=== PATIENT | female | born 1965 | race Caucasian/White ===

== ENCOUNTER 2018-07-09 20:30 | Outpatient (CLI) | payer BC | END 2018-07-09 20:31 | disposition home or self-care (01) | LOC: SLEEPLAB 20:30 | PROVIDERS: ATTEND Internal Medicine | DX: G25.81 Restless legs syndrome (principal); G47.33 Obstructive sleep apnea (adult) (pediatric); R53.83 Other fatigue; R06.83 Snoring; G47.10 Hypersomnia, unspecified; I10 Essential (primary) hypertension; G47.00 Insomnia, unspecified; E11.9 Type 2 diabetes mellitus without complications; E66.9 Obesity, unspecified; Z68.42 Body mass index [BMI] 45.0-49.9, adult | CPT/HCPCS: 95810 ==

== ENCOUNTER 2019-05-14 12:41 | Emergency (ER) | payer BC, OTHER ==
--- NOTE | 2019-05-14 13:28 | RAD ---
EXAM: 3 views of the left hand COMPARISON: None HISTORY: Hand pain after fall FINDINGS: 3 views of the left hand shows no evidence of acute fracture or dislocation. No degenerativ e changes are seen. No soft tissue swelling is present. IMPRESSION: Unremarkable exam.
== END 2019-05-14 13:52 | disposition home or self-care (01) ==
LOC: SCSER 12:41
DX: S60.222A Contusion of left hand, initial encounter (principal); E78.5 Hyperlipidemia, unspecified; E11.9 Type 2 diabetes mellitus without complications; I10 Essential (primary) hypertension; G40.909 Epilepsy, unspecified, not intractable, without status epilepticus; F32.9 Major depressive disorder, single episode, unspecified; F41.9 Anxiety disorder, unspecified; Z79.899 Other long term (current) drug therapy; Z79.84 Long term (current) use of oral hypoglycemic drugs; W01.0XXA Fall on same level from slipping, tripping and stumbling without subsequent striking against object, initial encounter

== ENCOUNTER 2019-05-30 10:46 | Emergency (ER) | payer BC, OTHER ==
[2019-05-30] MEDS ORDERED: Meclizine HCl 25 MG TAB ONE (11:29)
[2019-05-30] MEDS ORDERED: Metoclopramide HCl 10 MG/2 ML VIAL ONE (11:29)
[2019-05-30 11:57] LABS: #Basophils 0.1 thou/uL (0.0-0.2); #Eosinphils 1.2 thou/uL (0.0-0.7); #Lymphocytes 2.2 thou/uL (1.20-3.40); #Monocytes 0.4 thou/uL (0.11-0.59); #Neutrophils 4.4 thou/uL (1.40-6.50); %Basophils 1.4 % (0.0-1.0); %Eosinophils 14.7 % (0.0-10.0); %Lymphocytes 26.7 % (21.0-51.0); %Monocytes 5.2 % (0.0-10.0); Hemoglobin 12.4 g/dL (12.0-16.0); Mean Corpuscular HGB CONC 33.8 g/dL (32.0-36.0); Mean Corpuscular Volume 94.8 fL (78.0-98.0); Mean Platelet Volume 7.5 fL (7.4-10.4); Platelet Count 226 thou/uL (130-400); RBC Distribution Width 12.1 % (11.5-14.5); Red Blood Cell (RBC) Count 3.86 mill/uL (4.20-5.40); White Blood Cell (WBC) Count 8.4 thou/uL (4.8-10.8)
--- NOTE | 2019-05-30 11:59 | RAD ---
EXAM: 2 views of the left hip HISTORY: Left hip pain after passing out COMPARISON: None FINDINGS: 2 views of the left hip shows no evidence of acute fracture or dislocation. No degenerative changes are seen. No soft tissue swelling is present. IMPRESSION: No evidence of acute osseous abnormality.
[2019-05-30 12:09] LABS: ALT (SGPT) 20 U/L (8-55); AST (SGOT) 21 U/L (5-34); Albumin 3.9 g/dL (3.5-5.0); Alkaline Phosphatase 85 U/L (40-150); Anion Gap 15 mmol/L (10-20); BUN (Urea Nitrogen) 23 mg/dL (9.8-20.1); Bilirubin, Total 0.3 mg/dL (0.2-1.2); Calc. Creatinine Clearance 0 mL/min (70-130); Calcium 9.4 mg/dL (7.8-10.44); Carbon Dioxide 22 mmol/L (22-29); Chloride 102 mmol/L (98-107); Estimated GFR-MDRD 60; Globulin 2.7 g/dL (2.4-3.5); Glucose 214 mg/dL (70-105); Potassium 4.9 mmol/L (3.5-5.1); Protein, Total 6.6 g/dL (6.0-8.3); Sodium 134 mmol/L (136-145)
[2019-05-30 12:10] LABS: Acetaminophen Less than 6.0 mcg/mL (10.0-30.0); Alcohol Less than 10 mg/dL (Less than 10); CK (CPK) 51 U/L (29-168); Salicylate Less than 8.0 mg/dL (15.0-30.0)
[2019-05-30 12:13] LABS: Bilirubin Negative (Negative); Blood, Urine Negative (Negative); Clarity Clear (Clear); Glucose, Urine (Dipstick) 500 mg/dL (Negative); Leukocyte Negative (Negative); Nitrite Negative (Negative); Protein, Urine (Dipstick) Negative (Neg-Trace); Urobilinogen 0.2 mg/dL (Less than 2)
[2019-05-30 12:20] LABS: Cocaine Metabolite Screen Not Detected (NotDetected); Phencyclidine (PCP) Not Detected (NotDetected); THC/Cannabinoid Screen Not Detected (NotDetected)
[2019-05-30 12:21] LABS: Amphetamine Not Detected (NotDetected); Barbiturates Screen Not Detected (NotDetected); Benzodiazepine Screen Detected (NotDetected); Medtox Control Line Valid? VALID (VALID); Methadone Not Detected (NotDetected); Methamphetamine Not Detected (NotDetected); Opiate Screen Not Detected (NotDetected); Oxycodone Screen Not Detected (NotDetected); Tricyclic Screen Not Detected (NotDetected)
== END 2019-05-30 15:15 | disposition home or self-care (01) ==
LOC: SCSER 10:46
DX: R55 Syncope and collapse (principal); E11.9 Type 2 diabetes mellitus without complications; I10 Essential (primary) hypertension; K21.9 Gastro-esophageal reflux disease without esophagitis; G40.909 Epilepsy, unspecified, not intractable, without status epilepticus; F41.9 Anxiety disorder, unspecified; F32.9 Major depressive disorder, single episode, unspecified; Z79.84 Long term (current) use of oral hypoglycemic drugs; Z79.899 Other long term (current) drug therapy
CPT/HCPCS: 80053; 80306; 80307; 81003; 82533; 82550; 84484; 85025; 87086; 93005; 96365; 96366; J2765; J8597

== ENCOUNTER 2019-07-30 15:55 | Emergency (ER) | payer BC ==
[2019-07-30 16:21] LABS: #Basophils 0.1 thou/uL (0.0-0.2); #Eosinphils 2.5 thou/uL (0.0-0.7); #Lymphocytes 1.9 thou/uL (1.20-3.40); #Monocytes 0.4 thou/uL (0.11-0.59); #Neutrophils 7.3 thou/uL (1.40-6.50); %Basophils 0.8 % (0.0-1.0); %Eosinophils 20.9 % (0.0-10.0); %Lymphocytes 15.3 % (21.0-51.0); %Monocytes 3.1 % (0.0-10.0); %Neutrophils 59.9 % (42.0-75.0); Hemoglobin 13.6 g/dL (12.0-16.0); Mean Corpuscular HGB CONC 33.7 g/dL (32.0-36.0); Mean Corpuscular Hemoglobin 31.6 pg (27.0-31.0); Mean Corpuscular Volume 93.7 fL (78.0-98.0); Mean Platelet Volume 8.3 fL (7.4-10.4); Platelet Count 291 thou/uL (130-400); Red Blood Cell (RBC) Count 4.32 mill/uL (4.20-5.40); White Blood Cell (WBC) Count 12.1 thou/uL (4.8-10.8)
[2019-07-30 16:39] LABS: Acetaminophen Less than 6.0 mcg/mL (10.0-30.0); Alcohol Less than 10 mg/dL (Less than 10); Salicylate Less than 8.0 mg/dL (15.0-30.0)
[2019-07-30 16:41] LABS: ALT (SGPT) 25 U/L (8-55); AST (SGOT) 22 U/L (5-34); Albumin 4.6 g/dL (3.5-5.0); Alkaline Phosphatase 89 U/L (40-110); Anion Gap 20 mmol/L (10-20); BUN (Urea Nitrogen) 27 mg/dL (9.8-20.1); Bilirubin, Total 0.3 mg/dL (0.2-1.2); Calc. Creatinine Clearance 0 mL/min (70-130); Carbon Dioxide 21 mmol/L (22-29); Chloride 101 mmol/L (98-107); Estimated GFR-MDRD 30; Globulin 2.8 g/dL (2.4-3.5); Glucose 179 mg/dL (70-105); Potassium 4.8 mmol/L (3.5-5.1); Protein, Total 7.4 g/dL (6.0-8.3); Sodium 137 mmol/L (136-145)
--- NOTE | 2019-07-30 17:16 | RAD ---
PORTABLE CHEST 1 VIEW: Date: 07/30/19 Time: 1624 hours HISTORY: Syncope. FINDINGS: Comparison made with exam of 07/08/15. The heart size is normal. No focal areas of consolidation, pneumothoraces, or pleural effusions are s een. Old fracture of the right clavicle is again noted. IMPRESSION: No acute process. POS: OFF
[2019-07-30] MEDS ORDERED: Acetaminophen 325 MG TAB ONE (17:29)
[2019-07-30 17:32] LABS: Bilirubin Negative (Negative); Blood, Urine Negative (Negative); Clarity Clear (Clear); Glucose, Urine (Dipstick) >=1000 mg/dL (Negative); Leukocyte Trace (Negative); Nitrite Negative (Negative); Protein, Urine (Dipstick) Negative (Neg-Trace); Urobilinogen 0.2 mg/dL (Less than 2)
[2019-07-30 17:34] LABS: Bacteria/HPF 1+ HPF (None Seen); RBC/HPF 0-3 HPF (0-3); Squamous Epithelial 0-3 HPF (0-3)
[2019-07-30 17:41] LABS: Amphetamine Not Detected (NotDetected); Barbiturates Screen Not Detected (NotDetected); Benzodiazepine Screen Detected (NotDetected); Cocaine Metabolite Screen Not Detected (NotDetected); Medtox Control Line Valid? VALID (VALID); Methadone Not Detected (NotDetected); Methamphetamine Not Detected (NotDetected); Opiate Screen Not Detected (NotDetected); Oxycodone Screen Not Detected (NotDetected); Phencyclidine (PCP) Not Detected (NotDetected); THC/Cannabinoid Screen Not Detected (NotDetected); Tricyclic Screen Not Detected (NotDetected)
== END 2019-07-30 18:38 | disposition short-term general hospital (02) ==
LOC: SCSER 15:55
DX: E86.0 Dehydration (principal); R55 Syncope and collapse; R00.1 Bradycardia, unspecified; N19 Unspecified kidney failure; F41.9 Anxiety disorder, unspecified; E11.9 Type 2 diabetes mellitus without complications; G40.909 Epilepsy, unspecified, not intractable, without status epilepticus; K21.9 Gastro-esophageal reflux disease without esophagitis; I10 Essential (primary) hypertension; Z79.84 Long term (current) use of oral hypoglycemic drugs; Z79.899 Other long term (current) drug therapy
CPT/HCPCS: 71045; 80053; 80306; 80307; 81003; 81015; 82550; 83605; 84484; 85025; 93005; 96360; 96361

== ENCOUNTER 2025-07-22 14:06 | Outpatient (CLI) | payer OTHER | END 2025-07-22 14:07 | disposition home or self-care (01) | LOC: BICMAMMO 14:06 | PROVIDERS: ATTEND Specialist | DX: Z12.31 Encounter for screening mammogram for malignant neoplasm of breast (principal); Z80.3 Family history of malignant neoplasm of breast | CPT/HCPCS: 77063; 77067 ==